=== PATIENT | female | born 1975 | race African-American/Black ===

== ENCOUNTER 2016-05-24 08:25 | Emergency (ER) ==
[2016-05-24] MEDS ORDERED: PHENERGAN IM ONE (09:43)
[2016-05-24] MEDS ORDERED: NUBAIN IM ONE (09:43)
--- NOTE | 2016-05-24 09:45 | PROVIDER DOCUMENTATION ---
HPI-Headache - General Chief Complaint: Headache Stated Complaint: MIGRAINE CARUSO Time Seen by Provider: 05/24/16 09:31 Source: patient Allergies/Adverse Reactions: Patient Allergies Allergy/AdvReac Type Severity Reaction Status Date / Time sumatriptan [From Imitrex] Allergy Intermediate RASH Verified 05/24/16 09:05 sumatriptan succinate * Allergy Intermediate RASH Verified 05/24/16 09:05 [From Imitrex] Sulfa (Sulfonamide Allergy Mild RASH Verified 05/24/16 09:05 Antibiotics) [Sulfa(Sulfonamide Antibiotics)] Home Medications: Home Medication List Medication Instructions Recorded Confirmed Last Taken Type Butalb/Acetaminophen/Caffeine 1 each PO Q6-8H PRN PRN #20 capsule 05/24/16 Unknown Rx [Fioricet 50-300-40 mg Capsule] - History of Present Illness-Headache Nature of Presenting Problem: Pt is a 41 y/o F c chief complaint of migraine headache x 1 day. Pt has a h/o migraine headaches and states this headache is similar to her previous migraines. Pt denies any focal nurological deficits. Pt denies any changes in coordination, slurred speech, or changes in vision. On arrival, pt is in minimal distress. Review of Systems - Adult - REVIEW OF SYSTEMS - ADULT Constitutional: reports: no symptoms reported. denies: chills, fatique Eyes: reports: no symptoms reported. denies: decreased vision, blurred vision, double vision Ears, Nose, Mouth & Throat: reports: no symptoms reported. denies: ear pain, nose pain, throat pain Cardiovascular: reports: no symptoms reported. denies: chest pain, orthopnea Respiratory: reports: no symptoms reported. denies: cough, shortness of breath Gastrointestinal: reports: no symptoms reported. denies: abdominal pain, nausea Genitourinary: reports: no symptoms reported. denies: dysuria, hematuria Musculoskeletal: reports: no symptoms reported. denies: bone pain, joint pain, joint swelling Integumentary: reports: no symptoms reported. denies: itching, rash Neurological: reports: headache/migraines. denies: numbness, paresthesia Psychiatric: reports: no symptoms reported. denies: anxiety, emotional problems Endocrine: reports: no symptoms reported. denies: cold intolerance, heat intolerance Hematologic/Lymphatic: reports: no symptoms reported. denies: blood clots, low blood count Allergic/Immunologic: reports: no symptoms reported. denies: allergic reactions , food allergy All Other Systems: Reviewed and Negative Past History - Adult - PAST MEDICAL HISTORY-ADULT Review of Records: reports: Old Records Reviewed, Nursing Assessment Review, Medications Reviewed, Social history reviewed & non-contributory. Major Childhood Illnesses: reports: denies history Cardiovascular: reports: denies history Respiratory: reports: denies history Gastrointestinal: reports: denies history Obstetrical/Gynecological: reports: denies history Genitourinary: reports: denies history Musculoskeletal: reports: denies history Neurological: reports: headaches/migraines Endocrine/Immune: reports: denies history Other Conditions: reports: denies history - PRIOR SURGERIES/PROCEDURES Surgical/Procedure History: reports: reviewed, not pertinent - IMMUNIZATION STATUS Childhood Immunizations: See Nurse Assessment Flu Vaccine: See Nurse Assessment - FAMILY HISTORY Family History: reviewed, not pertinent - SOCIAL HISTORY Smoking: denies Substance Use: none/never Alcohol Use Frequency: never Living Situation: family Physical Exam- Neurological - Physical Exam-Neuro Initial Vital Signs Reviewed: Yes General Appearance: alert, mild distress Eye Exam: bilateral eye: normal inspection, PERRL, EOMI HENMT: normocephalic/atraumatic, moist mucous membranes, normal ENT inspection Head Injury: no evidence of injury Neck: non-tender, full range of motion, supple, normal inspection Respiratory: chest non-tender, lungs clear, normal breath sounds Cardiovascular: normal peripheral pulses, regular rate, rhythm, no edema Abdominal Exam: normal bowel sounds, non tender, soft Lymphatic: no adenopathy 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, 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, 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: normal hearing, normal speech, PERRL Coordination/Gait: normal gait Motor/Sensory: no motor deficit, no sensory deficit, no pronator drift Neurologic: grossly normal, no motor/sensory deficits Integumentary: normal color, normal turgor, warm/dry Psych/Mental Status: normal mood/affect, normal thought content, normal thought process, oriented x 3 - Glascow Coma Scale Best Eye Response: (4) open spontaneously Best Verbal Response: (5) oriented Best Motor Response: (6) obeys commands Progress - PLAN OF CARE/RESULTS Progress/Plan/Lab Results: Orders Category Date Time Status Nalbuphine [Nubain] Med 05/24/16 09:43 Discontinued 10 mg IM NOW ONE Promethazine [Phenergan] Med 05/24/16 09:43 Discontinued 25 mg IM NOW ONE Vital Signs - 24 hr 05/24/16 05/24/16 08:42 10:16 Temperature 98.3 F Pulse Rate 91 H 65 Respiratory 18 16 Rate Blood Pressure 141/84 118/68 O2 Sat by Pulse 100 100 Oximetry Departure - Departure Time of Disposition Order: 09:44 DIAGNOSIS: Migraine Qualifiers: Migraine type: unspecified Status migrainosus presence: without status migrainosus Intractability: not intractable Qualified Code(s): G43.909 - Migraine, unspecified, not intractable, without status migrainosus Disposition: HOME 01 Certified Medical Emergency: Emergent Condition: Stable Additional Instructions: ED Follow Up Instructions: You have been treated by a care provider in the Emergency Department. These instructions are being provided to you so you can have an understanding of how to care for yourself upon discharge. Upon discharge from the Emergency Department, you are responsible for making arrangements for follow-up care by a physician of your choice. Take all prescribed medications as directed. Return to the Emergency Department immediately for any new or worsening symptoms. You may call the Physician Referral phone number at [phone] to obtain a list of Physicians who are taking new patients. Prescriptions: Butalb/Acetaminophen/Caffeine [Fioricet 50-300-40 mg Capsule] 1 each PO Q6-8H PRN PRN #20 capsule PRN Reason: Migraine Headache Referrals: Rosa Isela Jernigan MD [Primary Care Provider] - Call for Appoint. -1 week Forms: Return to School/Parent Work Instructions: Migraine Headache, [id number] Attestation - Physician/ MARYANNE Attestation Patient care was provided by Advanced Practice Provider:: Yes Advanced Practice Provider:: Jean Carlos Neely Advanced Practice Provider documentation review:: The Mid-level provider documentation, treatment plan and medical decision making was reviewed by the physician who agrees with all treatment and medical decision making by the MLP.
[2016-05-24 10:17] VITALS: BP 118/68
== END 2016-05-24 10:17 | disposition home or self-care (01) ==
LOC: ED 08:25
DX: G43.909 Migraine, unspecified, not intractable, without status migrainosus (principal); R51 Headache
CPT/HCPCS: J2300; J2550

== ENCOUNTER 2016-06-04 06:09 | Emergency (ER) ==
[2016-06-04] MEDS ORDERED: NUBAIN IM ONE (06:47)
[2016-06-04] MEDS ORDERED: PHENERGAN IM ONE (06:48)
--- NOTE | 2016-06-04 06:53 | PROVIDER DOCUMENTATION ---
HPI-Headache - General Chief Complaint: Headache Stated Complaint: migraine Time Seen by Provider: 06/04/16 06:44 Allergies/Adverse Reactions: Patient Allergies Allergy/AdvReac Type Severity Reaction Status Date / Time sumatriptan [From Imitrex] Allergy Intermediate RASH Verified 05/24/16 09:05 sumatriptan succinate * Allergy Intermediate RASH Verified 05/24/16 09:05 [From Imitrex] Sulfa (Sulfonamide Allergy Mild RASH Verified 05/24/16 09:05 Antibiotics) [Sulfa(Sulfonamide Antibiotics)] Home Medications: Home Medication List Medication Instructions Recorded Confirmed Last Taken Type Butalb/Acetaminophen/Caffeine 1 each PO Q6-8H PRN PRN #20 capsule 05/24/16 Unknown Rx [Fioricet 50-300-40 mg Capsule] - History of Present Illness-Headache Nature of Presenting Problem: Pt developed a right temporal/frontal headache while at work last night at 7PM. She is allergic to imitrex and has been seen by neurologist with no satisfACTORY RESOLUTION. She wants nubain for relief and already has a rx for fioricet Review of Systems - Adult - REVIEW OF SYSTEMS - ADULT Constitutional: denies: chills, fever Eyes: denies: dry eyes, blurred vision Ears, Nose, Mouth & Throat: denies: hearing loss, sinus problem Cardiovascular: denies: edema, irregular heart rate, syncope Respiratory: denies: chronic cough, shortness of breath, wheezing Gastrointestinal: reports: nausea. denies: abdominal pain, diarrhea, vomiting Musculoskeletal: denies: bone pain, joint pain, muscle aches Integumentary: denies: itching, nail changes Neurological: denies: ataxia, dizziness/vertigo, numbness, paresthesia Psychiatric: denies: anxiety, emotional problems Endocrine: denies: goiter, cold intolerance, heat intolerance Hematologic/Lymphatic: denies: low blood count, lymphedema Allergic/Immunologic: denies: eczema, hay fever, hives Past History - Adult - PAST MEDICAL HISTORY-ADULT Review of Records: reports: Nursing Assessment Review, Medications Reviewed Major Childhood Illnesses: reports: denies history Cardiovascular: reports: denies history Respiratory: reports: denies history Gastrointestinal: reports: denies history Obstetrical/Gynecological: reports: denies history Genitourinary: reports: denies history Musculoskeletal: reports: denies history Neurological: reports: headaches/migraines Endocrine/Immune: reports: denies history Other Conditions: reports: denies history - PRIOR SURGERIES/PROCEDURES Surgical/Procedure History: reports: reviewed, not pertinent - IMMUNIZATION STATUS Childhood Immunizations: See Nurse Assessment Flu Vaccine: See Nurse Assessment - FAMILY HISTORY Family History: reviewed, not pertinent Physical Exam- Neurological - Physical Exam-Neuro Initial Vital Signs Reviewed: Yes General Appearance: appears well, alert, moderate distress Eye Exam: bilateral eye: normal inspection, PERRL, EOMI HENMT: normocephalic/atraumatic, moist mucous membranes, normal ENT inspection Head Injury: no evidence of injury Neck: non-tender, full range of motion, supple, normal inspection Respiratory: chest non-tender, lungs clear, normal breath sounds, no pleuratic chest pain, no respiratory distress, no accessory muscle use Cardiovascular: normal peripheral pulses, regular rate, rhythm, no edema, no gallop, no JVD, no murmur Abdominal Exam: normal bowel sounds, non tender, soft Lymphatic: no adenopathy 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, 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, 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, normal speech, PERRL Coordination/Gait: normal gait Motor/Sensory: no motor deficit Integumentary: normal color, normal turgor, warm/dry Psych/Mental Status: normal mood/affect, normal thought content, normal thought process, oriented x 3 Progress - PLAN OF CARE/RESULTS Progress/Plan/Lab Results: Orders Category Date Time Status Nalbuphine [Nubain] Med 06/04/16 06:47 Discontinued 20 mg IM NOW ONE Promethazine [Phenergan] Med 06/04/16 06:48 Discontinued 25 mg IM NOW ONE Vital Signs Temp Pulse Resp BP Pulse Ox 06/04/16 06:20 98.1 F 90 18 161/80 100 sumatriptan [From Imitrex] Allergy (Intermediate, Verified 05/24/16 09:05) RASH sumatriptan succinate * [From Imitrex] Allergy (Intermediate, Verified 05/24/16 09:05) RASH Sulfa (Sulfonamide Antibiotics) [Sulfa(Sulfonamide Antibiotics)] Allergy (Mild, Verified 05/24/16 09:05) RASH Butalb/Acetaminophen/Caffeine [Fioricet 50-300-40 mg Capsule] 1 each PO Q6-8H PRN PRN #20 capsule 05/24/16 Departure - Departure Time of Disposition Order: 06:53 DIAGNOSIS: Migraine Qualifiers: Migraine type: with aura Status migrainosus presence: with status migrainosus Intractability: not intractable Qualified Code(s): G43.101 - Migraine with aura , not intractable, with status migrainosus Disposition: HOME 01 Certified Medical Emergency: Emergent Condition: Stable
[2016-06-04 08:16] VITALS: BP 131/85
== END 2016-06-04 08:16 | disposition home or self-care (01) ==
LOC: ED 06:09
DX: G43.101 Migraine with aura, not intractable, with status migrainosus (principal); R51 Headache; R11.0 Nausea
CPT/HCPCS: J2300; J2550